=== PATIENT | female | born 1980 | race Caucasian/White ===

== ENCOUNTER 2017-03-12 08:37 | Day surgery (SDC) | payer OTHER ==
[~2017-03-12 08:37] MED LIST: Buffered Lidocaine 1% SYRIN* 3 ML/SYR SYRINGE INTRADERM ONE; Dexamethasone IV* 4 MG/ML 1 ML (4 MG) IV SLOW PU ONE; Dexamethasone IV* 4 MG/ML 1 ML (4 MG) ONE; Famotidine IV* 10 MG/ML 2 ML (20 mg) IV ONE; Famotidine IV* 10 MG/ML 2 ML (20 mg) ONE
[2017-03-12] MEDS ORDERED: ceFAZolin 2 GM PREMIX(*) 2 GM/50 ML BAG IVPB ONE (08:43)
[2017-03-12] MEDS ORDERED: Bupivacaine 0.25% SDV* 30 ML ONE (10:31)
[2017-03-12] MEDS ORDERED: methylPREDNISolone ACETATE 80* 80 MG/ML 1 ML VIAL ONE (10:31)
[2017-03-12] MEDS ORDERED: Bupivacaine 0.25% EPI 200,000* 30 ML SDV ONE (10:31)
[2017-03-12] MEDS ORDERED: Ondansetron INJ* 2 MG/ML VIAL IV PRN (10:38)
[2017-03-12] MEDS ORDERED: DiMENhydriNATE IV* 50 MG/ML VIAL IV PUSH PRN (10:38)
[2017-03-12] MEDS ORDERED: oxyCODONE TAB* 5 MG TAB PO PRN (10:38)
[2017-03-12] MEDS ORDERED: fentaNYL* 50 MCG/ML 2 ML VIAL (100 MCG VIAL) IV PRN (10:38)
[2017-03-12] MEDS ORDERED: Lidocaine 2% PF* 5 ML VIAL ONE (10:42)
[2017-03-12] MEDS ORDERED: fentaNYL* 50 MCG/ML 5 ML VIAL (250 MCG VIAL) ONE (10:42)
[2017-03-12] MEDS ORDERED: Midazolam* 1 MG/ML 5 ML VIAL (5 MG) ONE (10:42)
[2017-03-12] MEDS ORDERED: Propofol* 10 MG/ML 20 ML BTL IV PUSH ONE (10:42)
[2017-03-12] MEDS ORDERED: Ondansetron INJ* 2 MG/ML VIAL ONE (10:42)
[2017-03-12] MEDS ORDERED: Ketorolac INJ* 30 MG/ML 1 ML VIAL ONE (10:42)
[2017-03-12] MEDS ORDERED: oxyCODONE/Acetamin 5/325 MG* TAB ONE (12:34)
[2017-03-12 13:33] VITALS: BP 108/68
--- NOTE | 2017-03-13 11:18 | OP ---
OPERATIVE REPORT: DATE OF OPERATION: 03/12/17 - ROSANNE DATE OF : 84 SURGEON: Beny Hobson MD AEROSPACE ASSEMBLER: CHERY Levine An medical practice assistant was needed for the entirety of case to help with positioning, retraction, was utilized throughout all portions and was brought into the case because there was possible need for more complicated surgery. ANESTHESIOLOGIST: Dr. Mcqueen. ANESTHESIA: General. PRE-OP DIAGNOSIS: Right knee with medial scarring in the knee as well as mild osteoarthritis. POST-OP DIAGNOSIS: Right knee with medial scarring in the knee as well as mild osteoarthritis. OPERATIVE PROCEDURE: Right knee arthroscopy with lysis of adhesions, synovectomy of the anterior and anteromedial compartment, chondroplasty of the patella as well as medial femoral condyle. COMPLICATIONS: None. ESTIMATED BLOOD LOSS: Minimal. DESCRIPTION OF PROCEDURE: The patient was greeted in the preoperative area by the attending surgeon, correct extremity was marked, consent was confirmed. The patient was brought back to the operating suite where she was placed in supine position on the operating table. She then underwent general anesthesia and endotracheal intubation after which the patient was properly positioned on the bed with lateral post. Unsterile tourniquet was placed high on the proximal thigh after which a miniature surgical pause was done and the knee was intraarticularly injected with 0.25% Marcaine with epi. The leg was then prepped and draped in usual sterile fashion beginning with chlorhexidine soap, scrub, and final prep with ChloraPrep. After appropriate surgical pause indicating site, side, procedure, administration of antibiotics, the anterolateral portal was made sharply with 11 blade. The scope was introduced to the joint. The joint was examined. The patella had grade 2 changes with unstable flaps. The trochlea had grade 0 changes. The medial and lateral gutters had small loose debris. There was abundant scar anteromedially. The medial portal was made in an outside-in fashion. The shaver and the electrocautery device were used to remove the abundant scar about the medial portal and about the patella. The scope was placed into the notch and ACL was examined and found to be intact. The medial compartment was identified. The previous area where the chondroplasty was completed was found to have grade 2 cartilage with mild unstable flaps. This was debrided back but the remainder of the lesion was intact. The medial meniscus was probed and found to be intact. The ACL and PCL were intact. The lateral compartment was examined. The lateral femoral condyle had grade 0 to 1 changes. The lateral tibial plateau had grade 0 to 1 changes. Lateral meniscus was intact. The patellofemoral joint was examined. The patella again had grade 2 changes with unstable flaps that were debrided back using a shaver. Medial and lateral gutters were intact. The medial aspect had obvious band of fibrous tissue or scar tissue from where the previous incision was. This was carefully released using the electrocautery device. This allowed for more mobilization of the patella. Attempt was tried to remove any adhesive bands that were present there. Once this was removed, the knee cap was floating more appropriately. The lateral glide was tested and the knee cap was not found to be more unstable laterally. All fluid and debris were removed from the joint and the portals were closed with 3-0 nylon. The knee was intraarticularly injected with 80 mg of Depo and 30 cc of 0.25% Marcaine plain. Sterile dressings were applied as well as the Cryo/Cuff. She awoke from anesthesia and transferred to the PACU in stable condition. POSTOPERATIVE PLAN: She will be weightbearing as tolerated. She will be allowed to work on range of motion as tolerated. She will be discharged on antibiotics due to having a previous surgery, as well as pain medication. DVT prophylaxis was considered but deferred due to no previous personal or family history. I will see the patient back in 10 to 14 days. CC: Dr. Filomena Staley* [id number]/CPS #: [id number] [place]
== END 2017-03-12 13:45 | disposition home or self-care (01) ==
LOC: OREAST 08:37
PROVIDERS: ATTEND Orthopaedic Surgery
DX: M93.962 Osteochondropathy, unspecified, left lower leg (principal); M25.462 Effusion, left knee; M23.8X2 Other internal derangements of left knee; M17.12 Unilateral primary osteoarthritis, left knee; E11.8 Type 2 diabetes mellitus with unspecified complications; Z79.84 Long term (current) use of oral hypoglycemic drugs; Z87.891 Personal history of nicotine dependence; I10 Essential (primary) hypertension; E66.9 Obesity, unspecified
CPT/HCPCS: A9270-GY; J0690; J1040; J1100; J1885; J2250; J2405; J2704; J3010

== ENCOUNTER 2018-11-29 11:11 | Emergency (ER) | payer OTHER ==
[2018-11-29 11:35] VITALS: BP 115/71
--- NOTE | 2018-12-03 07:16 | UC ---
Ear Complaint HPI - HPI Summary HPI Summary: 38 y/o with bilateral ear pain x 2 days no cold symptoms , no cough , no nasal congestion , denies any fever, better with Ibuprofen or Tylenol , - History of Current Complaint Chief Complaint: UCEar Stated Complaint: BILATERAL EAR Time Seen by Provider: 11/29/18 11:41 Hx Obtained From: Patient Hx Last Menstrual Period: 11/26/18 Onset/Duration: Gradual Onset, Lasting Days - 2, Still Present Severity Initially: Moderate Severity Currently: Moderate Pain Intensity: 0 Pain Scale Used: 0-10 Numeric Aggravating Factors: Nothing Alleviating Factors: OTC Meds Associated Signs/Symptoms: Negative: Discharge, Hearing Loss, Foreign Body Sensation, Trauma to Ear, Swelling @, URI Symptoms - Allergies/Home Medications Allergies/Adverse Reactions: Allergies Allergy/AdvReac Type Severity Reaction Status Date / Time bee venom protein (honey bee) Allergy Severe Anaphylatic Verified 11/29/18 11:40 Shock clonazepam Allergy Severe Hallucinati Verified 11/29/18 11:39 ons acetaminophen [From Tylenol] AdvReac Severe causes Verified 11/29/18 11:41 migraines chocolate flavor AdvReac Intermediate Headache Verified 11/29/18 11:39 pantoprazole [From Protonix] AdvReac Intermediate Nausea And Verified 11/29/18 11:39 Vomiting depo provera Allergy Severe Anaphylatic Uncoded 05/03/18 14:05 Shock Go lightly Allergy Severe Rash,hives Uncoded 05/03/18 14:05 HOT DOGS Allergy Severe Diarrhea Uncoded 05/03/18 14:05 PUREX LAUNDRY DETERGENT Allergy Severe Hives Uncoded 05/03/18 14:05 CATS/DOGS Allergy Intermediate Eyes Uncoded 05/03/18 14:05 Itchy/Swollen/Red/Watery DAIRY Allergy Intermediate Headache Uncoded 05/03/18 14:05 DUST MITES Allergy Rash Uncoded 05/03/18 14:05 soy allergy AdvReac Intermediate Diarrhea Uncoded 11/29/18 11:39 Home Medications: Home Medications ARIPiprazole TAB* [Abilify TAB*] 5 mg PO BID 11/29/18 [History Confirmed ] DULoxetine DR CAP* [Cymbalta CAP*] 30 mg PO DAILY 11/29/18 [History Confirmed ] PMH/Surg Hx/FS Hx/Imm Hx Cardiovascular History: Hypertension - Surgical History Surgical History: Yes Surgery Procedure, Year, and Place: c-sect x 2- [facility] ;. left ankle- 1998 [facility];. LEFT KNEE 0CT 2015 2ND LEFT KNEE SCAR TISSUE 02/2017;. Ear tubes, T/A- 1988- [place],;. [place] [facility] [place]. 2010 Lt tympanoplasty- with metal at stapes [facility] -1ST EAR IMPLANT NOT THERE/FELLOUT AND 2ND LEFT EAR PISTONS PLACED- [facility] [place] BR[place] CARD OK FOR UP TO 3T ( COPY SCANNED IN CHART 2014). HEARTCATH-NO STENTS;. T & A - Family History Known Family History: Positive: Hypertension, Other Family History: negative sz hx - Social History Alcohol Use: Rare Substance Use Type: None Substance Use Comment - Amount & Last Used: PRESCRIBED PAIN MEDICATION AND XANAX Smoking Status (MU): Former Smoker Type: Cigarettes Amount Used/How Often: smoked for about one year 1/2 ppd When Did the Patient Quit Smoking/Using Tobacco: quit 14 years ago Household Exposure Type: Cigarettes Review of Systems All Other Systems Reviewed And Are Negative: Yes Constitutional: Positive: Negative Skin: Positive: Negative Eyes: Positive: Negative ENT: Positive: Ear Ache Respiratory: Positive: Negative Cardiovascular: Positive: Negative Is Patient Immunocompromised?: No Physical Exam Triage Information Reviewed: Yes Appearance: Well-Appearing, No Pain Distress, Well-Nourished Vital Signs: Initial Vital Signs Temp 98.5 F 11/29/18 11:32 Pulse 89 11/29/18 11:32 Resp 18 11/29/18 11:32 BP 115/71 11/29/18 11:32 Pulse Ox 100 11/29/18 11:32 Vital Signs Reviewed: Yes Eye Exam: Normal Eyes: Positive: Conjunctiva Clear ENT: Positive: Normal ENT inspection, Hearing grossly normal, Pharynx normal, TM bulging - right ear, TM red - right. Negative: Nasal congestion, Nasal drainage Neck exam: Normal Neck: Positive: Supple, Nontender, No Lymphadenopathy Respiratory: Positive: Chest non-tender, Lungs clear, Normal breath sounds Cardiovascular: Positive: RRR, No Murmur, Pulses Normal, Brisk Capillary Refill Skin Exam: Normal Ear Complaint Course/Dx - Differential Dx/Diagnosis Provider Diagnosis: Otitis media Discharge - Sign-Out/Discharge Documenting (check all that apply): Patient Departure All imaging exams completed and their final reports reviewed: No Studies - Discharge Plan Condition: Stable Disposition: HOME Prescriptions: Amoxicillin PO (*) [Amoxicillin 875 MG (*)] 875 mg PO BID #20 tab Patient Education Materials: Ear Infection (ED) Referrals: Kassie Reyes MD [Primary Care Provider] - 7 Days - Billing Disposition and Condition Condition: STABLE Disposition: Home
== END 2018-11-29 11:50 | disposition home or self-care (01) ==
LOC: UCCORT 11:11
DX: H66.91 Otitis media, unspecified, right ear (principal); Z88.8 Allergy status to other drugs, medicaments and biological substances; Z88.6 Allergy status to analgesic agent; I10 Essential (primary) hypertension; Z87.891 Personal history of nicotine dependence
CPT/HCPCS: 99212; G0463

== ENCOUNTER 2019-01-15 14:29 | Emergency (ER) | payer OTHER ==
[2019-01-15 15:21] VITALS: BP 136/86
--- NOTE | 2019-01-15 15:42 | UC ---
Skin Complaint HPI - History of Current Complaint Chief Complaint: UCSkin Time Seen by Provider: 01/15/19 15:40 Stated Complaint: SKIN CONCERN - RIGHT ARM Hx Obtained From: Patient Hx Last Menstrual Period: [id number] ?: No Onset/Duration: Gradual Onset Skin Exposure Onset/Duration: Days Ago Timing: Constant Onset Severity: Mild Pain Intensity: 6 - Allergy/Home Medications Allergies/Adverse Reactions: Allergies Allergy/AdvReac Type Severity Reaction Status Date / Time bee venom protein (honey bee) Allergy Severe Anaphylatic Verified 01/15/19 15:21 Shock clonazepam Allergy Severe Hallucinati Verified 01/15/19 15:21 ons acetaminophen [From Tylenol] AdvReac Severe causes Verified 01/15/19 15:21 migraines chocolate flavor AdvReac Intermediate Headache Verified 01/15/19 15:21 pantoprazole [From Protonix] AdvReac Intermediate Nausea And Verified 01/15/19 15:21 Vomiting depo provera Allergy Severe Anaphylatic Uncoded 01/15/19 15:21 Shock Go lightly Allergy Severe Rash,hives Uncoded 01/15/19 15:21 HOT DOGS Allergy Severe Diarrhea Uncoded 01/15/19 15:21 PUREX LAUNDRY DETERGENT Allergy Severe Hives Uncoded 01/15/19 15:21 CATS/DOGS Allergy Intermediate Eyes Uncoded 01/15/19 15:21 Itchy/Swollen/Red/Watery DAIRY Allergy Intermediate Headache Uncoded 01/15/19 15:21 DUST MITES Allergy Rash Uncoded 01/15/19 15:21 soy allergy AdvReac Intermediate Diarrhea Uncoded 01/15/19 15:21 Home Medications: Home Medications cloNIDine TAB* [Catapres 0.1 MG TAB*] 0.2 mg PO BEDTIME 01/15/19 [History Confirmed 01/15/19] PMH/Surg Hx/FS Hx/Imm Hx - Additional Past Medical History Additional PMH: Pt states she usually injects "Savana" and the last time was one week ago, however, she denies injecting it at the site of the redness. She says she has been picking at her skin which made it worse with increased redness, swelling and mild pus drainage. Last tetanus was 9 years ago. She denies injecting at the area of concern (right forearm) Previously Healthy: Yes - Surgical History Surgical History: Yes Surgery Procedure, Year, and Place: c-sect x 2- [facility] ;. left ankle- 1998 [facility];. LEFT KNEE 0CT 2016 2ND LEFT KNEE SCAR TISSUE 02/2017;. Ear tubes, T/A- 1988- [place],;. left shoulder open decompression 05[place]2015 [place] [facility] [place]. 2010 Lt tympanoplasty- with metal at stapes [facility] -1ST EAR IMPLANT NOT THERE/FELLOUT AND 2ND LEFT EAR PISTONS PLACED- [facility] [place] CARD OK FOR UP TO 3T ( COPY SCANNED IN CHART 2015). HEARTCATH-NO STENTS;. T & A - Family History Known Family History: Positive: Hypertension, Other Family History: negative sz hx - Social History Alcohol Use: Rare Substance Use Type: Marijuana, Other - Methamphetamine which she last injected one week ago but not at the area of concern Substance Use Comment - Amount & Last Used: weekly Smoking Status (MU): Light Every Day Tobacco Smoker Type: Cigarettes Amount Used/How Often: smoked for about one year 1/2 ppd When Did the Patient Quit Smoking/Using Tobacco: quit 14 years ago Household Exposure Type: Cigarettes - Immunization History Immunizations Comment: Last tetanus 2008 Review of Systems All Other Systems Reviewed And Are Negative: Yes Constitutional: Positive: Fever - Pt states she didn't feel well earlier in the week whcih she associates more with an illness rather than her arm since the redness only became worse over the past 24 hours. Skin: Positive: Rash - Cellulitis right forearm. Pt states she does not inject her drugs in the forearm but rather the antecubital area (which is not involved today). She has been picking at her arm. She applied bandaids and she had a skin reaction to the bandaids, then she applied other tape which worsened the redness. Today it is more red, mildly swollen with mild yellow drainage. No abscess formation. She has a history of MRSA. Respiratory: Positive: Negative Cardiovascular: Positive: Negative Gastrointestinal: Positive: Negative Genitourinary: Positive: Negative Motor: Positive: Negative Neurovascular: Positive: Negative Musculoskeletal: Positive: Negative Neurological: Positive: Negative Psychological: Positive: Negative Is Patient Immunocompromised?: No Physical Exam Triage Information Reviewed: Yes Appearance: Well-Appearing, No Pain Distress, Well-Nourished Vital Signs: Initial Vital Signs Temp 98.7 F 01/15/19 15:16 Pulse 93 01/15/19 15:16 Resp 16 01/15/19 15:16 BP 136/86 01/15/19 15:16 Pulse Ox 100 01/15/19 15:16 Vital Signs Reviewed: Yes Respiratory Exam: Normal Cardiovascular Exam: Normal Abdominal Exam: Normal Bowel Sounds: Positive: Present Musculoskeletal Exam: Normal Musculoskeletal: Positive: Strength Intact, ROM Intact Neurological: Positive: Alert, Muscle Tone Normal Psychological Exam: Normal Skin: Positive: Rashes, Other - Cellulitis measuring approximately 7.5 cm X 5.0 cm right distal forearm palmar side. Course/Dx - Course Course Of Treatment: Pt was given a Tdap here and a juventino dressing without tape touching the skin, which I think has worsened the redness. - Diagnoses Provider Diagnosis: Cellulitis of forearm, right Discharge - Sign-Out/Discharge Documenting (check all that apply): Patient Departure All imaging exams completed and their final reports reviewed: No Studies - Discharge Plan Condition: Good Disposition: HOME Prescriptions: Sulfamethox/Trimethoprim DS* [Bactrim DS 800/160 TAB*] 1 tab PO BID #20 tab Patient Education Materials: Cellulitis (DC) Referrals: Kassie Reyes MD [Primary Care Provider] - Additional Instructions: Definite follow up with your primary care provider in 24 hours or go to the ER if area looks worse with increased redness, swelling, red streaks up your arm, fever. Warm moist compresses to affected area 4-6 times a day for 20 minutes each time. You were given a Tdap tetanus immunization which is good for 8-10 years. Anytime you inject yourself with drugs, your are increasing the risk of a severe skin infection and abscess formation. - Billing Disposition and Condition Condition: GOOD Disposition: Home - Attestation Statements Provider Attestation: Per institutional requirements, I have reviewed the chart, however, I was not consulted specifically or made aware of this patient by the midlevel provider. I did not personally evaluate, interact with , or disposition this patient.
[2019-01-15] MEDS ORDERED: Tetan/Diph/Pertus SYR(Tdap)* 0.5 ML SYR(BOOSTRIX) use SYR IM ONE (15:49)
== END 2019-01-15 16:07 | disposition home or self-care (01) ==
LOC: UCCORT 14:29
DX: L03.113 Cellulitis of right upper limb (principal); F17.210 Nicotine dependence, cigarettes, uncomplicated; Z91.030 Bee allergy status; Z88.8 Allergy status to other drugs, medicaments and biological substances; Z91.018 Allergy to other foods; Z91.09 Other allergy status, other than to drugs and biological substances; Z86.14 Personal history of Methicillin resistant Staphylococcus aureus infection
CPT/HCPCS: 90471; 90715; 99212; G0463